=== PATIENT | female | born 1935 | race Caucasian/White ===

== ENCOUNTER 2019-07-16 15:23 | Inpatient (IN) | payer OTHER ==
[~2019-07-16] VITALS: Ht 170.2 cm; Wt 70.3 kg
[2019-07-16 15:51] LABS: BASOPHILS % (AUTO) 0.4 % (0.0-2.0); EOSINOPHILS % (AUTO) 1.2 % (0.0-6.0); HEMATOCRIT 47 % (33-45); HEMOGLOBIN 15.7 g/dL (11.5-14.8); LYMPHOCYTES # (AUTO) 1.9 /CMM (0.8-4.8); LYMPHOCYTES % (AUTO) 22.4 % (20.0-44.0); MEAN CORPUSCULAR HGB CONC 34 g/dl (31.0-36.0); MEAN CORPUSCULAR VOLUME 94 fL (82-100); MONOCYTES # (AUTO) 0.9 /CMM (0.1-1.30); MONOCYTES % (AUTO) 10.4 % (2.0-12.0); NEUTROPHILS # (AUTO) 5.7 /CMM (1.8-8.9); NEUTROPHILS % (AUTO) 65.6 % (43.0-81.0); PLATELET COUNT (AUTO) 218 /CMM (150-450); RED BLOOD CELL COUNT(AUTO) 5.02 MIL/uL (4.0-5.2); WHITE BLOOD COUNT (AUTO) 8.7 K/uL (4.3-11.0)
[2019-07-16] MEDS ORDERED: DILTIAZEM HCL 25 MG IV ONE (15:52)
--- NOTE | 2019-07-16 15:58 | NUR ---
CALLED [facility]. 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
[2019-07-16 16:00] LABS: CALCIUM, SERUM 9.7 mg/dL (8.5-10.1); CARBON DIOXIDE 22 mmol/L (21-32); CHLORIDE 102 mmol/L (98-107); CREATININE 0.9 mg/dL (0.6-1.3); GLUCOSE 108 mg/dL (74-106); POTASSIUM 3.6 mmol/L (3.5-5.1); SODIUM SERUM 139 mmol/L (136-145); UREA NITROGEN, BLOOD 17 mg/dL (7-18)
[2019-07-16] MEDS ORDERED: DILTIAZEM HCL 25 MG IV IVP ONE (16:00)
[2019-07-16] MEDS ORDERED: DILTIAZEM HCL IV 125 MG in IV D5W 100 ML IV ONE (16:00)
--- NOTE | 2019-07-16 16:10 | NUR ---
CALLED [facility] FOR ICU BED
[2019-07-16] MEDS ORDERED: CLOP75TA15 PO (16:17)
[2019-07-16] MEDS ORDERED: LEVO50TA8 PO (16:17)
[2019-07-16] MEDS ORDERED: LABE100T5 PO (16:17)
[2019-07-16] MEDS ORDERED: THYR60TA2 PO (16:17)
[2019-07-16] MEDS ORDERED: OXYB5TAB11 PO (16:17)
--- NOTE | 2019-07-16 16:20 | NUR ---
Patient bib through pa to er with rapid heart rate. 181 hr taken upon assessment. patient placed on ekg. connect to monitors. no sob noted. nad. awaiting md further eval. will continue to monitor pt.
--- NOTE | 2019-07-16 17:58 | NUR ---
spoke to alba murillo. she will call me back after she speaks to her director about admitting the pt
--- NOTE | 2019-07-16 18:18 | NUR ---
per dr roy, pt can be downgraded to renetta
[2019-07-16] MEDS ORDERED: AMIODARONE 150 MG in IV D5W 100 ML IV ONE (18:30)
[2019-07-16] MEDS ORDERED: OXYBUTYNIN CHLORIDE 5 MG TABLET PO PRN (18:30)
[2019-07-16] MEDS ORDERED: LABETALOL HCL (100MG) 100 MG TABLET PO SCH (18:30)
[2019-07-16] MEDS ORDERED: HYDROCODONE/APAP 5/325MG 1 EACH TABLET PO PRN (19:00)
[2019-07-16] MEDS ORDERED: Z GUARD REMEDY 2 OZ OINT TP PRN (19:00)
[2019-07-16] MEDS ORDERED: MAGNESIUM HYDROXIDE 30 ML UDC PO PRN (19:00)
[2019-07-16] MEDS ORDERED: ACETAMINOPHEN 325 MG TABLET PO PRN (19:00)
[2019-07-16] MEDS ORDERED: ONDANSETRON HCL/PF 4 MG/2 ML VIAL IVP PRN (19:00)
[2019-07-16] MEDS ORDERED: MAG HYDROX/AL HYDROX/SIMETH 30 ML UDC PO PRN (19:00)
[2019-07-16 19:04] LABS: PHOSPHORUS 3.8 mg/dL (2.5-4.9)
--- NOTE | 2019-07-16 19:49 | NUR ---
ATTEMPTED TO GIVE REPORT, NURSE WILL CALL BACK
[2019-07-16] MEDS ORDERED: AMIODARONE 900 MG in IV D5W 500 ML IV PRN (20:00)
--- NOTE | 2019-07-16 20:15 | NUR ---
RECEIVED REPORT FROM KENDALL SANTOS FOR GALLO.
--- NOTE | 2019-07-16 20:18 | NUR ---
GAVE REPORT TO ZOILA ARGUETA FOR GALLO
[2019-07-16 20:20] LABS: THYROID STIMULATING HORMONE 0.028 uIU/mL (0.358-3.74)
[2019-07-16 20:45] VITALS: BP 160/75
--- NOTE | 2019-07-16 20:45 | NUR ---
SOHAIL RN OPENING/ADMITTING NOTES RECEIVED PATIENT VIA [place] FROM ER. DX AFIB WITH RVR. PT AWAKE, A/OX4, ABLE TO MAKE NEEDS KNOWN. PT AMBULATED FROM GURNEY TO BED, STEADY GATE WITH MILD WEAKNESS NOTED. ON TELE MONITOR SINUS RHYTHM WITH HR 80'S. ON RA, NO SOB OR RESPIRATORY/CARDIAC DISTRESS NOTED. DENIES ANY PAIN. IV SITE RIGHT FA 18G FLUSHING AND PATENT, RECEIVED PT WITH CARDIZEM DRIP RUNNING AT 10MG/HR, NO INFILTRATION NOTED. PHYSICAL ASSESSMENT DONE AND RECORDED (SEE FLOWSHEET). PT KEPT COMFORTABLE. SAFETY MEASURES IN PLACE; CALL LIGHT WITHIN REACH, BED LOCKED AND IN LOWEST POSITION, SIDE RAILS UP X2. PT REQUESTED FOR BEDSIDE COMMODE, WILL ATTEND TO REQUEST. REMINDED TO USE CALL LIGHT FOR ASSISTANCE. WILL CONT TO MONITOR PT CLOSELY.
--- NOTE | 2019-07-16 20:49 | NUR ---
PT TRANSFERRED PER [facility]S PROTOCOL
--- NOTE | 2019-07-16 21:25 | NUR ---
[address] ORELLANA AND NOTIFIED HIM THAT PATIENT HAS ALREADY CONVERTED TO NSR WITH HR IN THE 70S. CLARIFIED HIS AMIODARONE GTT ORDER AND HE ORDERED TO DISCONTINUE AMIODARONE GTT AND START PATIENT ON AMIODARONE PO 200MG TID. ORDER NOTED AND CARRIED OUT.
[2019-07-17] VITALS: BP 159/79
[2019-07-17 04:00] VITALS: BP 145/83
[2019-07-17 05:59] LABS: BASOPHILS % (AUTO) 0.7 % (0.0-2.0); EOSINOPHILS % (AUTO) 2.9 % (0.0-6.0); HEMATOCRIT 40 % (33-45); HEMOGLOBIN 13.9 g/dL (11.5-14.8); LYMPHOCYTES # (AUTO) 1.8 /CMM (0.8-4.8); LYMPHOCYTES % (AUTO) 31.2 % (20.0-44.0); MEAN CORPUSCULAR HGB CONC 34 g/dl (31.0-36.0); MEAN CORPUSCULAR VOLUME 92 fL (82-100); MONOCYTES # (AUTO) 0.9 /CMM (0.1-1.30); MONOCYTES % (AUTO) 15.2 % (2.0-12.0); NEUTROPHILS # (AUTO) 2.9 /CMM (1.8-8.9); PLATELET COUNT (AUTO) 169 /CMM (150-450); RED BLOOD CELL COUNT(AUTO) 4.38 MIL/uL (4.0-5.2); WHITE BLOOD COUNT (AUTO) 5.8 K/uL (4.3-11.0)
[2019-07-17 06:28] LABS: ALBUMIN 3.3 g/dL (3.4-5.0); BILIRUBIN,TOTAL 0.9 mg/dL (0.2-1.0); CALCIUM, SERUM 8.9 mg/dL (8.5-10.1); CREATININE 0.8 mg/dL (0.6-1.3); MAGNESIUM 1.9 mg/dL (1.8-2.4); PHOSPHORUS 3.9 mg/dL (2.5-4.9); POTASSIUM 3.2 mmol/L (3.5-5.1); TOTAL PROTEIN, SERUM 5.9 g/dL (6.4-8.2)
--- NOTE | 2019-07-17 07:30 | NUR ---
SOHAIL RN AM NOTES RECEIVED PATIENT IN BED, ASLEEP, AROUSES TO NAME AND TOUCH, A/OX4, ABLE TO MAKE NEEDS KNOWN. ON TELE MONITOR SINUS RHYTHM WITH HR 80'S. ON RA, NO SOB OR RESPIRATORY/CARDIAC DISTRESS NOTED. DENIES ANY PAIN. IV SITE RIGHT FA 18G FLUSHES WELL, SITE CLEAR, WITH BRP. SAFETY MEASURES IN PLACE; CALL LIGHT WITHIN REACH, BED LOCKED AND IN LOWEST POSITION, SIDE RAILS UP X2. POC DISCUSSED WITH PATIENT, VERBALIZED UNDERSTANDING. REMINDED TO USE CALL LIGHT FOR ASSISTANCE. WILL CONT TO MONITOR PT CLOSELY.
--- NOTE | 2019-07-17 07:33 | NUR ---
SOHAIL RN CLOSING NOTES PATIENT SLEEPING IN BED, BUT EASY TO AROUSE, A/OX4, ABLE TO MAKE NEEDS KNOWN. ON TELE MONITOR NORMAL SINUS RHYTHM WITH HR 80'S. ON RA, NO SOB OR RESPIRATORY/CARDIAC DISTRESS NOTED. DENIES ANY PAIN. IV SITE RIGHT FA 18G FLUSHING AND PATENT, SITE C/D/I. PT KEPT COMFORTABLE. SAFETY MEASURES IN PLACE AND MAINTAINED; CALL LIGHT WITHIN REACH, BED LOCKED AND IN LOWEST POSITION, SIDE RAILS UP X2. PT REQUESTED FOR BEDSIDE COMMODE, WILL ATTEND TO REQUEST. REMINDED TO USE CALL LIGHT FOR ASSISTANCE. ENDORSED TO AM RN FOR GALLO.
[2019-07-17 08:00] VITALS: BP 145/71
[2019-07-17] MEDS ORDERED: LEVOTHYROXINE SODIUM 50 MCG TABLET PO SCH ×2 (09:00)
[2019-07-17] MEDS ORDERED: THYROID 30 MG TABLET PO SCH (09:00)
[2019-07-17] MEDS ORDERED: AMIODARONE HCL 200 MG TABLET PO SCH (09:00)
--- NOTE | 2019-07-17 09:30 | NUR ---
RN NOTES DUE MEDS GIVEN
[2019-07-17] MEDS ORDERED: METOPROLOL TARTRATE 50 MG TABLET PO SCH (10:00)
[2019-07-17] MEDS: POTASSIUM CHLORIDE 20 MEQ TAB.PRT.SR PO SCH ×3 (10:52→12:44)
[2019-07-17 10:53] VITALS: BP 145/71
--- NOTE | 2019-07-17 11:29 | NUR ---
RN NOTES PATIENT REFUSED TO HAVE PT/INR DRAWN DESPITE EXPLAINING THE IMPORTANCE.
[2019-07-17] MEDS ORDERED: WARF5TAB77 PO (11:36)
[2019-07-17] MEDS ORDERED: METO200T49 PO (11:36)
--- NOTE | 2019-07-17 14:30 | NUR ---
RN NOTES PATIENT DISCHARGED TO HOME TODAY PER MD IN STABLE CONDITION. PROVIDED DC INSTRUCTIONS, MED RECON LIST/PRESCRIPTION AND HEALTH TEACHINGS. PATIENT TO FOLLOW UP WITH PCP IN 1-2 WEEKS AND WILL MAKE OWN APPOINTMENT. IV ACCESS ON RAC REMOVED BY SOON CHARGE NURSE, NO BLEEDING, DRESSING IN PLACE. ALL BELONGINGS CHECKED AND RETURNED. ALL PAPER WORKS SIGNED. PATIENT PICKED UP BY VIA PRIVATE CAR.
[2019-07-17] MEDS ORDERED: WARFARIN SODIUM 5 MG TABLET PO SCH (17:00)
[2019-07-17] MEDS ORDERED: RIVAROXABAN 10 MG TABLET PO SCH (17:00)
== END 2019-07-17 14:30 | disposition home or self-care (01) | DRG 310 ==
LOC: ER 15:25 → ICU 18:24 → TELE-TD 19:49 → MEDSG1 07-17 09:44
PROVIDERS: ADMIT Internal Medicine; ATTEND Internal Medicine
DX: I48.91 Unspecified atrial fibrillation (principal); I16.0 Hypertensive urgency; E78.5 Hyperlipidemia, unspecified; Z86.73 Personal history of transient ischemic attack (TIA), and cerebral infarction without residual deficits; F32.9 Major depressive disorder, single episode, unspecified; E03.9 Hypothyroidism, unspecified; I10 Essential (primary) hypertension; I05.0 Rheumatic mitral stenosis; F41.9 Anxiety disorder, unspecified
CPT/HCPCS: 36415; 71045-TC; 80048-TC; 80053-TC; 80061-TC; 83735-TC; 84100-TC; 84439-TC; 84443-TC; 84484-TC; 85025-TC; 87081-TC; 93307-TC; G0378; J0282; J3490; J7060

== ENCOUNTER 2020-09-16 21:25 | Emergency (ER) | payer OTHER ==
[~2020-09-16] VITALS: Ht 170.2 cm; Wt 68.5 kg
[~2020-09-16 21:25] MED LIST: METO200T49 PO; OXYB5TAB16 PO; WARF5TAB PO
--- NOTE | 2020-09-16 21:36 | NUR ---
BIBFAMILY FROM HOME TO ER BED 2. AAOX4. NOT IN RESP DISTRESS, BREATHING EVEN AND UNLABORED. TALKING IN FULL SENTENCES. CAME IN FOR THROAT PAIN X 1 HR AGO. PT REPORTS THAT SHE WAS HAVING DINNER WHEN SHE FELT THE PAIN AND SHE FELT A PIECE OF BANE IN HER THROAT. DANITZA, TELESCOPE OPERATOR AT THE BEDSIDE FOR EVAL. AWAITING ORDERS
--- NOTE | 2020-09-16 22:01 | NUR ---
called radiology for x ray
[2020-09-16] MEDS ORDERED: MAG HYDROX/AL HYDROX/SIMETH 30 ML UDC ONE (22:20)
[2020-09-16] MEDS ORDERED: LIDOCAINE VISCOUS 2% UD 15 ML UDC ONE (22:20)
--- NOTE | 2020-09-16 22:28 | NUR ---
PT IS TAKEN FOR CT
[2020-09-16] MEDS ORDERED: MAG HYDROX/AL HYDROX/SIMETH 30 ML UDC PO ONE (22:30)
[2020-09-16] MEDS ORDERED: LIDOCAINE VISCOUS 2% UD 15 ML UDC MM ONE (22:30)
--- NOTE | 2020-09-16 23:03 | NUR ---
pt is medically stable for D/C. Patient discharged to home in stable condition. Written and verbal after care instructions given. Patient verbalizes understanding of instruction.
[2020-09-16 23:06] VITALS: BP 153/88
== END 2020-09-16 23:06 | disposition home or self-care (01) ==
LOC: ER 21:29
DX: R09.89 Other specified symptoms and signs involving the circulatory and respiratory systems (principal); I10 Essential (primary) hypertension; I48.91 Unspecified atrial fibrillation; E03.9 Hypothyroidism, unspecified; Z88.0 Allergy status to penicillin; Z79.899 Other long term (current) drug therapy; Z79.01 Long term (current) use of anticoagulants; Z86.73 Personal history of transient ischemic attack (TIA), and cerebral infarction without residual deficits
CPT/HCPCS: 70360-TC; 70490-TC